=== PATIENT | male | born 1990 ===

== ENCOUNTER 2018-01-04 07:29 | Outpatient (CLI) | payer OTHER ==
[~2018-01-04] VITALS: Ht 182.9 cm; Wt 95.3 kg
== END 2018-01-04 07:45 | disposition home or self-care (01) ==
LOC: OFIC 805 07:29
DX: H90.0 Conductive hearing loss, bilateral (principal); H61.23 Impacted cerumen, bilateral; J31.0 Chronic rhinitis; J35.1 Hypertrophy of tonsils

== ENCOUNTER → 2022-08-27 12:45 | Outpatient (CLI) | payer OTHER | END | disposition home or self-care (01) | LOC: LAB 12:45 | PROVIDERS: ATTEND Obstetrics & Gynecology | DX: Z20.828 Contact with and (suspected) exposure to other viral communicable diseases (principal); Z20.818 Contact with and (suspected) exposure to other bacterial communicable diseases ==